=== PATIENT | male | born 1955 | race Caucasian/White ===

== ENCOUNTER → 2016-04-23 | Outpatient (CLI) | payer BC ==
[~2016-04-23] MED LIST: ASPI81TA28 PO; ATEN-173 PO; EMPA1TAB7 PO; FELO5TAB PO; GLIM4TAB2 PO; INSDGI SC; LISI-461 PO; METF-384 PO; PRAV20TA PO
== END | disposition home or self-care (01) ==
LOC: C.PATHSPEC 18:31
PROVIDERS: ATTEND Urology
DX: C67.9 Malignant neoplasm of bladder, unspecified (principal); R82.8 Abnormal findings on cytological and histological examination of urine

== ENCOUNTER 2024-12-07 09:14 | Inpatient (IN) ==
--- NOTE | 2024-12-07 09:49 | Emergency Department Note ---
Impression & Plan Acute dyspnea, Acute CHF, Elevated troponin, Elevated brain natriuretic peptide (BNP) level ED Provider Note HISTORY OF PRESENT ILLNESS: Patient is a 69-year-old male presenting with shortness of breath. Patient reports for the last week he has noticed has become more short of breath with minimal amounts of exertion. Notes that when he bends over to try to tie his shoes or pick something off the ground he is significantly short of breath. He states that last night he was unable to sleep secondary to anytime he laid flat he felt like he could not breathe and would have to sit up. Patient has an extensive cardiac history, including multiple stents and coronary bypass. He is on aspirin and Entresto. Denies any DVT or PE history. Denies noticing any lower extremity edema. He denies any recent cough or fevers. Patient denies any chest pain with her shortness of breath. Denies any recent travel or recent sick contact exposures. ROS: as above PHYSICAL EXAM: Constitutional: Patient appears in no acute distress. HENT: Head: Normocephalic and atraumatic. Eyes: EOMI, PERRL Mouth/Throat: Mucous membranes moist. Neck: Trachea midline. Neck supple. Cardiovascular: RRR, No murmurs, rubs or gallops. Intact distal pulses. Pulmonary/Chest: No respiratory distress. Breath sounds clear and equal bilaterally. No wheezes or rales. Abdominal: Abdomen soft, no tenderness, rebound or guarding. Musculoskeletal: No tenderness or deformity noted. Trace edema of the bilateral lower extremities extending to the mid tibias. Skin: Warm and dry. No rash, erythema, pallor or cyanosis Psychiatric: Appropriate mood and affect for situation. Neurological: Alert and keenly responsive. CN II-XII grossly intact, moving all extremities equally and fully. MDM: - Vitals signs stable. - History obtained via patient. History as above. - Chronic conditions affecting care: DM-2; HTN; HLD; CAD; aortic valve sclerosis; ischemic cardiomyopathy - Differential diagnoses include, but are not limited to: Congestive heart failure; acute coronary syndrome; COPD/asthma exacerbation; pulmonary edema; pulmonary embolism; pneumonia; pneumothorax; viral syndrome - Order placed for continuous cardiac monitoring. At this time, monitor showed rate of 68 bpm with normal sinus rhythm, per my interpretation. - External medical records reviewed. Cardiology report from [place] [facility] dated 01/01/2023 was reviewed. Patient follows in their clinic for his ischemic and valvular cardiomyopathy with an EF of 25%. - EKG image interpreted by myself showed normal sinus rhythm. Rate 68 bpm. QT 446. No acute ischemic changes. Noted have some ST depressions in leads II and V3 through V6. When compared to an EKG from 01/05/2023, these ST depressions have been noted previously. - Laboratory workup interpreted by myself showed normal WBC; stable electrolytes; elevated troponin (60.4); elevated BNP (736); elevated lipase (179) - CXR reviewed interpreted by myself showed pulmonary vascular congestion, per my interpretation. - Patient given 40 mg IV lasix - Patient reports his last echocardiogram had to be canceled this past year and so he has not had an echo in the last 2 years. Will admit for acute CHF and elevated troponin. - Discussion was had with case operator about patient's case and need for admission - Hospitalist consulted for admission - Patient admitted to [facility] for further evaluation and management. ASSESSMENT AND PLAN: Diagnosis: Acute dyspnea; acute CHF; elevated troponin; elevated BNP Plan: admit Past Med/Surg History Problem List (Updated 12/07/24 @ 11:37 by Carol Carmona MD) Ischemic cardiomyopathy Elevated brain natriuretic peptide (BNP) level (Acute) Elevated troponin (Acute) Acute CHF (Acute) Acute dyspnea (Acute) Type 2 diabetes mellitus with retinopathy of both eyes, with long-term current use of insulin Hypertension Albuminuria Bladder carcinoma Erectile dysfunction Vitamin D deficiency T2DM (type 2 diabetes mellitus) IDDM > freestyle isidro Obesity Mild non proliferative diabetic retinopathy HTN (hypertension) Dyslipidemia CAD (coronary artery disease) follows with Dr. Kessler BPH (benign prostatic hyperplasia) Bladder tumor Aortic valve sclerosis follows with Dr. Kessler in [place] [facility] History Arthritis History of neoplasm of bladder History of skin cancer History of CHF (congestive heart failure) Peripheral vascular disease Paroxysmal A-fib History of bleeding ulcers H/O herpes zoster H/O acute myocardial infarction Surgical History History of cystoscopy History of esophagogastroduodenoscopy (EGD) History of colonoscopy History of tooth extraction History of tonsillectomy H/O prosthetic heart valve H/O heart artery stent Status post surgical removal and fulguration of bladder neoplasm History of cataract surgery History of open heart surgery S/P shoulder surgery Family History Father Myocardial infarction, Onset Age: 44 Hypertension Family/Other Diabetes Mother Kidney stones Other No family history of adverse response to anesthesia Denies family history of Ovarian cancer Prostate cancer Breast cancer Colorectal cancer Social History Smoking Status: Former smoker Tobacco Type: Smokeless Tobacco (Dip or Chew) Age Started Using Tobacco: 6; Age Quit Using Tobacco: 62; Second Hand Exposure: No; Do You Dip or Chew Tobacco: No (quit 2017); Hx Alcohol Use: Yes Alcohol type: beer Alcohol Intake Frequency: 2-3 x/Week Alcohol Intake Frequency Comment: 6 beers weekly Hx Substance Use: No Preferred Language: Citizen Of [place] Communication Ability: Effective Visual Impairment: No Limitations Hearing Ability: Normal Wash Tank Tender Required: No Beliefs That Will Affect Care: None marital status: Current Living Situation: Spouse current occupational status: employed current occupation: Excavation How many Children do You have: 1 Feels Safe at Home: Yes Childhood Exposure to Second-Hand Smoke: No Diet: regular caffeine: Yes during the past year weight has: remained stable Dental Care, Regularly: No Physical Activity Frequency: Daily Seatbelt Use: always Sunscreen Use: Yes Assistive Devices: Denture - Upper and Glasses Allergies Allergies Allergy/AdvReac Type Severity Reaction Status Date / Time poison ely extract Allergy Intermediate Rash Verified 11/15/24 08:25 canagliflozin [From Invokana] AdvReac Intermediate rash, Verified 11/15/24 08:25 swelling of lips atorvastatin [From Lipitor] AdvReac Mild muscle Verified 11/15/24 08:25 cramps Home Meds Home Medications Medication Instructions Recorded Confirmed cholecalciferol (vitamin D3) 50 2,000 units PO QAM 04/05/19 11/15/24 mcg (2,000 unit) tablet omega-3 fatty acids 1,250 mg 1,250 mg PO QAM 05/03/19 11/15/24 capsule ascorbate calcium (vitamin C) 500 500 mg PO QAM 04/19/20 11/15/24 mg tablet aspirin 81 mg chewable tablet 81 mg PO QAM 06/24/21 11/15/24 blood sugar diagnostic #10 ea 12/23/21 11/15/24 magnesium hydroxide 400 mg (170 mg 400 mg PO DAILY 04/26/23 11/15/24 magnesium) chewable tablet insulin lispro 100 unit/mL 50 unit subcut UD 10/26/23 11/15/24 subcutaneous pen (Humalog KwikPen (U-100) Insulin) Previous Rx's Medication Instructions Recorded FreeStyle Isidro 2 Sensor (flash #1 ea 05/06/20 glucose sensor) pen needle, diabetic 31 gauge x #500 ea 09/16/2107/28" (BD Ultra-Fine Short Pen Needle) lancets 33 gauge (OneTouch Delica #100 ea 12/23/22 Plus Lancet) dulaglutide 3 mg/0.5 mL 3 mg (0.5 mL) subcut .weekly #6 mL 05/24/23 subcutaneous pen injector flash glucose scanning reader #1 ea 06/25/23 (FreeStyle Isidro 2 [place]) Toujeo Max U-300 SoloStar 300 55 unit (0.1833 mL) subcut BID #18 02/07/24 unit/mL (3 mL) subcutaneous mL insulin pen (insulin glargine U-300 conc) blood sugar diagnostic (OneTouch #100 ea 02/15/24 Verio test strips) sacubitril 49 mg-valsartan 51 mg 1 tab PO BID #180 tabs 06/14/24 tablet (Entresto) metformin 1,000 mg tablet 1,000 mg PO BID #180 tabs 08/15/24 metoprolol succinate 25 mg 25 mg PO QAM #90 tabs 10/24/24 tablet,extended release 24 hr rosuvastatin 20 mg tablet 20 mg .Route .At bedtime #90 tabs 11/14/24 Results & Data (ED) Vital Signs Vital Signs - 24 hr 12/07/24 09:27 12/07/24 09:27 12/07/24 09:47 Temperature 36.4 C L Temperature Source Temporal Artery Scan Pulse Rate 71 Pulse Rate [Apical] 66 Pulse Strength [Apical] Normal Respiratory Rate 20 17 Respiratory Effort / Characteristics Non-Labored Spontaneous Respiratory Depth Normal Respiratory Pattern Regular Blood Pressure 133/82 Blood Pressure [Right Arm] 131/86 Blood Pressure Mean 99 Blood Pressure Mean [Right Arm] 101 Blood Pressure Position Sitting Pulse Oximetry 96 99 Oxygen Delivery Method Room Air Room Air Sepsis Recent Fever Within 48 Hours No Sepsis New/Unexplained Change in Mental Status No Sepsis Action Taken by Nursing No Action Required 12/07/24 09:48 12/07/24 09:49 12/07/24 10:28 Temperature Temperature Source Pulse Rate 67 Pulse Rate [Apical] Pulse Strength [Apical] Respiratory Rate Respiratory Effort / Characteristics SOB on Exertion Respiratory Depth Normal Respiratory Pattern Regular Blood Pressure Blood Pressure [Right Arm] Blood Pressure Mean Blood Pressure Mean [Right Arm] Blood Pressure Position Pulse Oximetry 98 Oxygen Delivery Method Room Air Room Air Sepsis Recent Fever Within 48 Hours Sepsis New/Unexplained Change in Mental Status Sepsis Action Taken by Nursing Laboratory Data 12/07/24 09:48 12/07/24 10:55 Lab Results 12/07/24 12/07/24 Range/Units 09:48 10:55 WBC 9.52 (4.8-10.8) K/ul RBC 4.61 L (4.70-6.10) M/uL Hgb 13.8 L (14.0-18.0) g/dl Hct 42.3 (42.0-52.0) % MCV 91.8 (80.0-100.0) fL MCH 29.9 (25.0-34.0) pg MCHC 32.6 (32.0-36.0) g/dL RDW Std Deviation 46.5 H (36.4-46.3) fL RDW Coeff of Avel 13.9 (11.5-14.5) % Plt Count 179 (130-400) K/uL MPV 11.0 (9.4-12.4) fL Immature Gran % (Auto) 0.4 % Neut % (Auto) 68.1 % Lymph % (Auto) 21.0 % [place] % (Auto) 5.9 % Eos % (Auto) 4.0 % Baso % (Auto) 0.6 % Neut # (Auto) 6.48 (1.40-6.50) K/uL Lymph # (Auto) 2.00 (1.20-3.40) K/uL [place] # (Auto) 0.56 (0.11-0.59) K/uL Eos # (Auto) 0.38 (0.00-0.50) K/uL Baso # (Auto) 0.06 (0.00-0.20) K/uL Immature Gran # (Auto) 0.04 (0.01-0.20) K/uL Sodium TNP 138 Potassium TNP 5.0 Chloride 104 (98-107) mmol/L Carbon Dioxide 28 (21-32) mmol/L Anion Gap TNP BUN 17 (6-23) mg/dl Creatinine 1.09 (0.6-1.4) mg/dl Est Cr Clr Drug Dosing 70.9 ml/min eGFR 72.56 BUN/Creatinine Ratio 15.6 (10-20) Glucose 200 H (70-99(Fasting)) mg/dl Calcium 9.3 (8.6-10.3) mg/dl Magnesium TNP 2.0 Total Bilirubin 1.0 (0.2-1.0) mg/dl AST TNP 24 ALT 35 (7-52) U/L Alkaline Phosphatase 62 (34-104) U/L Troponin I High Sens 60.4 H* (0-20) pg/ml B-Natriuretic Peptide 736 H (0-100) pg/ml Total Protein 7.5 (6.0-8.3) gm/dl Albumin 4.4 (3.4-5.0) gm/dl Globulin 3.1 (2.5-4.0) gm/dl Albumin/Globulin Ratio 1.4 (0.9-2) Lipase 179 H (11-82) U/L Imaging Data Radiologist's Impression: Chest X-Ray 12/07/24 09:46 XR chest 1V portable CLINICAL HISTORY: Chest pain, nonspecific COMPARISON STUDY: 04/18/2021 FINDINGS: Stable CABG. There is increased cardiomegaly with pulmonary vascular congestion. There is increased pulmonary interstitial prominence. No lobar consolidation or pleural effusion. No pneumothorax. IMPRESSION: Increased CHF. ACT 112: Negative or not required by law. Electronically signed by: Juan España M.D. 12/07/2024 10:10 AM Discharge Plan Visit Data Chief Complaint: Shortness of Breath/Dyspnea Stated Complaint: SOB ED Provider: Carol Carmona Discharge Problem: Acute dyspnea, Acute CHF, Elevated troponin, Elevated brain natriuretic peptide (BNP) level Condition: Fair Forms Stand Alone Forms: [facility] Prescriptions Prescriptions: No Action (DME) FreeStyle Isidro 2 Sensor Kit See Rx Instructions .ROUTE .MEDSUPPLY Qty: 1 0RF Rx Instructions: change every 14 days (DME) pen needle, diabetic [BD Ultra-Fine Short Pen Needle] 31 gauge x 5/16" needle See Rx Instructions .ROUTE .MEDSUPPLY Qty: 500 3RF Rx Instructions: Use 5 per day with insulin injections dulaglutide 3 mg/0.5 mL pen injector 3 mg subcut .weekly Qty: 6 3RF (DME) FreeStyle Isidro 2 [place] Misc See Rx Instructions .Route Qty: 1 0RF Rx Instructions: Use to monitor blood sugars daily insulin glargine U-300 conc [Toujeo Max U-300 SoloStar] 300 unit/mL (3 mL) insulin pen 55 unit subcut BID Qty: 18 3RF (DME) OneTouch Verio test strips Strip See Rx Instructions .Route Qty: 100 11RF Rx Instructions: Test blood sugars three times a day Entresto 49-51 mg tablet 1 tab PO BID Qty: 180 1RF metformin 1,000 mg tablet 1,000 mg PO BID Qty: 180 1RF metoprolol succinate 25 mg tablet extended release 24 hr 25 mg PO QAM Qty: 90 1RF rosuvastatin 20 mg tablet 20 mg .ROUTE .At bedtime Qty: 90 0RF Rx Instructions: 20 mg AT BEDTIME; aspirin 81 mg tablet,chewable 81 mg PO QAM omega-3 fatty acids 1,250 mg capsule 1,250 mg PO QAM (DME) blood sugar diagnostic Strip See Rx Instructions .ROUTE .MEDSUPPLY Qty: 10 Rx Instructions: Test blood sugar once daily PRN cholecalciferol (vitamin D3) 2,000 unit tablet 2,000 units PO QAM ascorbate calcium (vitamin C) 500 mg tablet 500 mg PO QAM (DME) lancets [OneTouch Delica Plus Lancet] 33 gauge misc See Rx Instructions .Route Qty: 100 11RF Rx Instructions: Test blood sugars three times a day magnesium hydroxide 400 mg (170 mg magnesium) tablet,chewable 400 mg PO DAILY insulin lispro [Humalog KwikPen Insulin] 100 unit/mL insulin pen 50 unit subcut UD Rx Instructions: 50 units per day/ PER SLIDING SCALE subcut WITH MEALS Referrals Referrals: Barak Nassar CRNP [Primary Care Provider] -
[2024-12-07 10:07] LABS: Hematocrit (blood only) 42.3 % (42.0-52.0); Hemoglobin 13.8 g/dl (14.0-18.0); Immature Granulocytes # (auto) 0.04 K/uL (0.01-0.20); Immature Granulocytes % (auto) 0.4 %; Mean Corpuscular Hemoglobin 29.9 pg (25.0-34.0); Mean Corpuscular Volume 91.8 fL (80.0-100.0); Platelet Count 179 K/uL (130-400); RDW Standard Deviation 46.5 fL (36.4-46.3); Red Blood Count 4.61 M/uL (4.70-6.10); White Blood Count 9.52 K/ul (4.8-10.8)
--- NOTE | 2024-12-07 10:11 | XRay Report ---
XR chest 1V portable CLINICAL HISTORY: Chest pain, nonspecific COMPARISON STUDY: 04/18/2021 FINDINGS: Stable CABG. There is increased cardiomegaly with pulmonary vascular congestion. There is i ncreased pulmonary interstitial prominence. No lobar consolidation or pleural effusion. No pneumothor ax. IMPRESSION: Increased CHF. ACT 112: Negative or not required by law. Electronically signed by: Juan España M.D. 12/07/2024 10:10 AM
[2024-12-07 10:45] LABS: Alanine Aminotransferase 35 U/L (7-52); Albumin Globulin Ratio 1.4 (0.9-2); Albumin Level 4.4 gm/dl (3.4-5.0); Alkaline Phosphatase 62 U/L (34-104); Bilirubin,Total 1.0 mg/dl (0.2-1.0); Blood Urea Nitrogen 17 mg/dl (6-23); Calcium 9.3 mg/dl (8.6-10.3); Carbon Dioxide 28 mmol/L (21-32); Chloride 104 mmol/L (98-107); Creatinine Clr Calc Pharmacy 70.9 ml/min; Globulin 3.1 gm/dl (2.5-4.0); Glucose 200 mg/dl (70-99(Fasting)); Lipase 179 U/L (11-82); Total Protein 7.5 gm/dl (6.0-8.3)
[2024-12-07 11:31] LABS: Magnesium 2.0 mg/dl (1.7-2.4); Potassium 5.0 mmol/L (3.5-5.1); Sodium 138.0 mmol/L (136-145)
[2024-12-07] MEDS: FUROSEMIDE 40 MG/4 ML VIAL IV ONE (11:39)
[2024-12-07] MEDS ORDERED: POLYETHYLENE (MIRALAX) 17 GM PACK PO PRN (14:30)
[2024-12-07] MEDS ORDERED: MAGNESIUM HYDROXIDE SUSP 30 ML UDC PO PRN (14:30)
[2024-12-07] MEDS ORDERED: ALUMINUM/MAGNESIUM SUSP 30 ML UDC PO PRN (14:30)
[2024-12-07] MEDS ORDERED: MELATONIN 3 MG TAB PO PRN (14:30)
[2024-12-07] MEDS ORDERED: ONDANSETRON INJ 2 MG/ML 2 ML VIAL IV PRN (14:30)
[2024-12-07] MEDS ORDERED: ACETAMINOPHEN 325 MG TAB PO PRN (14:30)
--- NOTE | 2024-12-07 16:34 | History & Physical Report ---
Date of Service December 07, 2024 Assessment & Plan (1) Acute CHF: (2) Ischemic cardiomyopathy: (3) Elevated brain natriuretic peptide (BNP) level: (4) Type 2 diabetes mellitus with retinopathy of both eyes, with long-term current use of insulin: (5) Hypertension: Plan Mr Gibbs is a 69yo gentleman with PMH of CAD s/p CABG, ischemic cardiomyopathy, T2DM who presented to the ED today for progressive SOB that started a week ago. He stated the SOB got progressively worse and last night he could not tolerate it anymore. He said he has never experienced this before. Pt noticed that he could not walk the normal distances he usually can, having to stop to catch his breath. He also endorses bendopnea, orthopnea, and PND symptoms. Last known ECHO in 2022 showed EF 50-55%. He denies fever, chills, sick contacts, CP, palpitations, N/V/C/D, abdominal pain, edema, and s ymptoms. He was given a dose of lasix 40mg in the ED, which improved his symptoms. He is currently being managed for CHF exacerbation. CXR: cardiomegaly with pulmonary vascular congestion, CHF Troponins: 60.4, 56.4 BNP: 736 #CHF exacerbation -plans for TTE -continue Lasix 40mg PO daily -repeat CBC, CMP, Troponin, and BNP in morning -encourage low sodium diet #CAD s/p CABG #Ischemic cardiomyopathy -continue rosuvastatin 20mg daily -continue metoprolol 25mg daily -continue Entresto daily 49-50 daily -continue aspirin 81mg daily #Diabetes, Type 2 -goal sugars 110-140 -Correction factor 20 -carb ratio 7 -Glargine 18 units BID -Aspart Dispo: Tele Diet: Heart Healthy, Diabetic, Low sodium Code: Full Code DVT prophylaxis: lovenox Admission and Anticipated Discharge Date Admission Date: December 07, 2024 History of Present Illness Primary Care Provider: DEBBIE Venegas Mr Gibbs is a 69yo gentleman with PMH of CAD s/p CABG, ischemic cardiomyopathy, T2DM who presented to the ED today for progressive SOB that started a week ago. He stated the SOB got progressively worse and last night he could not tolerate it anymore. He said he has never experienced this before. Pt noticed that he could not walk the normal distances he usually can, having to stop to catch his breath. He also endorses bendopnea, orthopnea, and PND symptoms. Last known ECHO in 2022 showed EF 50-55%. He denies fever, chills, sick contacts, CP, palpitations, N/V/C/D, abdominal pain, edema, and symptoms. He was given a dose of lasix 40mg in the ED, which improved his symptoms. Allergies Allergy/AdvReac Type Severity Reaction Status Date / Time poison ely extract Allergy Intermediate Rash Verified 11/15/24 08:25 canagliflozin [From Invokana] AdvReac Intermediate rash, Verified 11/15/24 08:25 swelling of lips atorvastatin [From Lipitor] AdvReac Mild muscle Verified 11/15/24 08:25 cramps Home Medications Medication Instructions Recorded Confirmed Type cholecalciferol (vitamin D3) 50 2,000 units PO QAM 04/05/19 12/07/24 History mcg (2,000 unit) tablet omega-3 fatty acids 1,250 mg 1,250 mg PO QAM 05/03/19 12/07/24 History capsule ascorbate calcium (vitamin C) 500 500 mg PO QAM 04/19/20 12/07/24 History mg tablet FreeStyle Isidro 2 Sensor (flash #1 ea 05/06/20 11/15/24 Rx glucose sensor) aspirin 81 mg chewable tablet 81 mg PO QAM 06/24/21 12/07/24 History pen needle, diabetic 31 gauge x #500 ea 09/16/21 11/15/24 Rx 5/16" (BD Ultra-Fine Short Pen Needle) blood sugar diagnostic #10 ea 12/23/21 11/15/24 History lancets 33 gauge (OneTouch Delica #100 ea 12/23/22 11/15/24 Rx Plus Lancet) magnesium hydroxide 400 mg (170 mg 400 mg PO DAILY 04/26/23 12/07/24 History magnesium) chewable tablet dulaglutide 3 mg/0.5 mL 3 mg (0.5 mL) subcut .weekly #6 mL 05/24/23 12/07/24 Rx subcutaneous pen injector flash glucose scanning reader #1 ea 06/25/23 11/15/24 Rx (FreeStyle Isidro 2 [place]) insulin lispro 100 unit/mL 50 unit subcut UD 10/26/23 12/07/24 History subcutaneous pen (Humalog KwikPen (U-100) Insulin) Anaya Max U-300 SoloStar 300 55 unit (0.1833 mL) subcut BID #18 02/07/24 12/07/24 Rx unit/mL (3 mL) subcutaneous mL insulin pen (insulin glargine U-300 conc) blood sugar diagnostic (OneTouch #100 ea 02/15/24 11/15/24 Rx Verio test strips) sacubitril 49 mg-valsartan 51 mg 1 tab PO BID #180 tabs 06/14/24 12/07/24 Rx tablet (Entresto) metformin 1,000 mg tablet 1,000 mg PO BID #180 tabs 08/15/24 12/07/24 Rx metoprolol succinate 25 mg 25 mg PO QAM #90 tabs 10/24/24 12/07/24 Rx tablet,extended release 24 hr rosuvastatin 20 mg tablet 20 mg PO .At bedtime 12/07/24 12/07/24 History Past Med/Surg History Problem List (Updated 12/07/24 @ 16:43 by Daniel Pritchett MD) Ischemic cardiomyopathy Elevated brain natriuretic peptide (BNP) level (Acute) Elevated troponin (Acute) Acute CHF (Acute) Acute dyspnea (Acute) Type 2 diabetes mellitus with retinopathy of both eyes, with long-term current use of insulin Hypertension Albuminuria Bladder carcinoma Erectile dysfunction Vitamin D deficiency T2DM (type 2 diabetes mellitus) IDDM > freestyle isidro Obesity Mild non proliferative diabetic retinopathy HTN (hypertension) Dyslipidemia CAD (coronary artery disease) follows with Dr. Kessler BPH (benign prostatic hyperplasia) Bladder tumor Aortic valve sclerosis follows with Dr. Kessler in [place] [facility] History Arthritis History of neoplasm of bladder History of skin cancer History of CHF (congestive heart failure) Peripheral vascular disease Paroxysmal A-fib History of bleeding ulcers H/O herpes zoster H/O acute myocardial infarction Surgical History History of cystoscopy History of esophagogastroduodenoscopy (EGD) History of colonoscopy History of tooth extraction History of tonsillectomy H/O prosthetic heart valve H/O heart artery stent Status post surgical removal and fulguration of bladder neoplasm History of cataract surgery History of open heart surgery S/P shoulder surgery Family History Father Myocardial infarction, Onset Age: 44 Hypertension Family/Other Diabetes Mother Kidney stones Other No family history of adverse response to anesthesia Denies family history of Ovarian cancer Prostate cancer Breast cancer Colorectal cancer Social History Smoking Status: Never smoker Tobacco Type: Smokeless Tobacco (Dip or Chew) Age Started Using Tobacco: 6; Age Quit Using Tobacco: 62; Second Hand Exposure: No; Do You Dip or Chew Tobacco: No (quit 2018); Hx Alcohol Use: No Hx Substance Use: No Preferred Language: [place] Communication Ability: Effective Visual Impairment: No Limitations Hearing Ability: Normal Wool Puller Required: No Beliefs That Will Affect Care: None marital status: Current Living Situation: Spouse current occupational status: employed current occupation: Excavation How many Children do You have: 1 Other Information That Helps Us Care for You: No Feels Safe at Home: Yes Safety Concerns: Feels Safe At This Time Childhood Exposure to Second-Hand Smoke: No Diet: regular caffeine: Yes during the past year weight has: remained stable Dental Care, Regularly: No Physical Activity Frequency: Daily Seatbelt Use: always Sunscreen Use: Yes Assistive Devices: Denture - Upper and Glasses Review of Systems Review of Systems: per HPI Physical Exam Physical Exam: GA: well groomed, well nourished in no apparent distress. AAOx3 HEENT: head normocephalic, atraumatic. EOMI RESP: vesicular breath sounds b/l. No wheezes, rhonchi, or rales CARDIOVASCULAR: S1 and S2 heard. No murmurs, rubs, or gallops. Radial pulses 2+ b/l RRR GI: Normoactive bowel sounds, no tenderness or masses felt to palpation MSK: no gross abnormalities or focal deficits SKIN: warm, dry, edema 2+ on right leg, 1+ left leg PSYCH: appropriate mood and affect NEURO: no focal deficits. speech fluent Results & Data Results & Data Vital Signs (Past 12 Hours) Vital Signs Temp Pulse Pulse Resp BP BP Pulse Ox 12/07/24 15:49 69 12/07/24 15:25 12/07/24 15:10 36.7 C 69 14 133/81 98 12/07/24 11:40 66 18 126/81 99 12/07/24 10:28 67 12/07/24 09:49 98 12/07/24 09:48 12/07/24 09:47 66 17 131/86 99 12/07/24 09:27 36.4 C L 12/07/24 09:27 71 20 133/82 96 O2 Del Method 12/07/24 15:49 12/07/24 15:25 Room Air 12/07/24 15:10 Room Air 12/07/24 11:40 Room Air 12/07/24 10:28 12/07/24 09:49 Room Air 12/07/24 09:48 Room Air 12/07/24 09:47 Room Air 12/07/24 09:27 12/07/24 09:27 Room Air Supervising Physician Co-Signing Physician Notes I personally examined the patient and verified all sawant points of history and exam, discussed case, and agree with decision making with Dr Pritchett feeling better now than when he came in. Progressive shortness of breath. Vitals noted, in general he is awake and alert pleasant no distress. HEENT normocephalic atraumatic mucous membranes moist. Breathing unlabored no accessory muscle use good effort. Skin without rashes pallor or icterus. Neuro without focal deficits. Chest x-ray reviewed as well. Acute on chronic HFrEFappears to have severe baseline cardiomyopathy with a low EF of 25% related to ischemic and valvular heart disease (status post two- vessel CABG and AVR in 2018). Suspect dietary indiscretion/sodium intake as the "why now"asked him to write down a typical diet for a couple of days so that we can review it together tomorrow. Continue to diurese. Continue metoprolol and Entresto, consider adding Jardiance at discharge. Diabetesinsulin management for now. Most recent A1c about 3 weeks ago was 8.3%. DVT prophylaxisLovenox (appears to have followed with Dr. Perez with [facility], [facility] facilitate outpatient follow- up at discharge) Resident Activity Tracking Resident Involvement: Resident Care Provided Care Provided: Adult Hospital Medicine (1) Acute CHF Heart failure type: unspecified Qualified Code(s): I50.9 - Heart failure, unspecified (5) Hypertension Hypertension type: unspecified Qualified Code(s): I10 - Essential (primary) hypertension
[2024-12-07] MEDS ORDERED: GLUCAGON FOR INJ 1 MG VIAL SQ PRN (16:53)
[2024-12-07] MEDS ORDERED: CARBOHYDRATES FOR HYPOGLYCEMIA PO PRN (16:53)
[2024-12-07] MEDS ORDERED: DEXTROSE 50% 50 ML SYRINGE IV PRN (16:53)
[2024-12-07] MEDS ORDERED: GLUCOSE 10 TAB/TUBE PO PRN (16:53)
[2024-12-07] MEDS ORDERED: GLUCOSE 40% GEL 15 GM TUBE PO PRN (16:53)
[2024-12-07] MEDS: INSULIN ASPART PER UNIT CHARGE SC STA ×2 (17:13→17:18)
--- NOTE | 2024-12-07 17:53 | Billing Data ---
Date of Service December 07, 2024 Coding Level of Care Code 88819 INT INP/OBS CARE
[2024-12-07] MEDS: LANTUS PER UNIT CHARGE SQ SCH (20:38)
[2024-12-07] MEDS: INSULIN ASPART PER UNIT CHARGE SC SCH (20:38)
[2024-12-07] MEDS: VALSARTAN/SACUBITRIL 51/49 MG TAB PO SCH (20:39)
[2024-12-07] MEDS: ROSUVASTATIN CALCIUM 20 MG TAB PO SCH (20:40)
[2024-12-08 05:59] LABS: Hematocrit (blood only) 41.1 % (42.0-52.0); Hemoglobin 13.3 g/dl (14.0-18.0); Immature Granulocytes # (auto) 0.05 K/uL (0.01-0.20); Immature Granulocytes % (auto) 0.5 %; Mean Corpuscular Hemoglobin 29.8 pg (25.0-34.0); Mean Corpuscular Volume 92.2 fL (80.0-100.0); Platelet Count 183 K/uL (130-400); RDW Standard Deviation 46.5 fL (36.4-46.3); Red Blood Count 4.46 M/uL (4.70-6.10); White Blood Count 9.20 K/ul (4.8-10.8)
[2024-12-08 06:19] LABS: Anion Gap 5.0 (3-11); Blood Urea Nitrogen 23.0 mg/dl (6-23); Calcium 8.6 mg/dl (8.6-10.3); Carbon Dioxide 29.0 mmol/L (21-32); Chloride 104.0 mmol/L (98-107); Creatinine Clr Calc Pharmacy 61.3 ml/min; Potassium 4.6 mmol/L (3.5-5.1); Sodium 138.0 mmol/L (136-145)
[2024-12-08] MEDS: ASPIRIN 81 MG CHEW PO SCH (08:38)
[2024-12-08] MEDS: FUROSEMIDE 40 MG/4 ML VIAL IV SCH (08:38)
[2024-12-08] MEDS: METOPROLOL SUCC 25MG EXT REL TAB PO SCH (08:39)
[2024-12-08] MEDS: ENOXAPARIN INJ 40 MG/0.4 ML SYR SQ SCH (08:40)
[2024-12-08 10:39] VITALS: BP 114/77; RESP 19; TEMP 97.5; O2SAT 95
--- NOTE | 2024-12-08 12:06 | Discharge Summary ---
Date of Service December 08, 2024 Admission HPI Per Admitting Provider Mr Gibbs is a 69yo gentleman with PMH of CAD s/p CABG, ischemic cardiomyopathy, T2DM who presented to the ED today for progressive SOB that started a week ago. He stated the SOB got progressively worse and last night he could not tolerate it anymore. He said he has never experienced this before. Pt noticed that he could not walk the normal distances he usually can, having to stop to catch his breath. He also endorses bendopnea, orthopnea, and PND symptoms. Last known ECHO in 2022 showed EF 50-55%. He denies fever, chills, sick contacts, CP, palpitations, N/V/C/D, abdominal pain, edema, and symptoms. He was given a dose of lasix 40mg in the ED, which improved his symptoms. Admission Exam Per Admitting Provider GA: well groomed, well nourished in no apparent distress. AAOx3 HEENT: head normocephalic, atraumatic. EOMI RESP: vesicular breath sounds b/l. No wheezes, rhonchi, or rales CARDIOVASCULAR: S1 and S2 heard. No murmurs, rubs, or gallops. Radial pulses 2+ b/l RRR GI: Normoactive bowel sounds, no tenderness or masses felt to palpation MSK: no gross abnormalities or focal deficits SKIN: warm, dry, edema 2+ on right leg, 1+ left leg PSYCH: appropriate mood and affect NEURO: no focal deficits. speech fluent Principal Diagnosis Acute CHF. Discharge Data Allergies Allergy/AdvReac Type Severity Reaction Status Date / Time poison ely extract Allergy Intermediate Rash Verified 11/15/24 08:25 canagliflozin [From Invokana] AdvReac Intermediate rash, Verified 11/15/24 08:25 swelling of lips atorvastatin [From Lipitor] AdvReac Mild muscle Verified 11/15/24 08:25 cramps Consultations 12/07/24 11:35 ED Decision to Admit Stat Hospital Course (1) Acute CHF: (2) Ischemic cardiomyopathy: (3) Elevated brain natriuretic peptide (BNP) level: (4) Type 2 diabetes mellitus with retinopathy of both eyes, with long-term current use of insulin: (5) Hypertension: Plan Mr Gibbs is a 69yo gentleman with PMH of CAD s/p CABG, ischemic cardiomyopathy, T2DM who presented to the ED for progressive SOB that started a week ago. He stated the SOB got progressively worse and last night he could not tolerate it anymore. He said he has never experienced this before. Pt noticed that he could not walk the normal distances he usually can, having to stop to catch his breath. He also endorses bendopnea, orthopnea, and PND symptoms. Last known ECHO in 2022 showed EF 50-55%. He denies fever, chills, sick contacts, CP, palpitations, N/V/C/D, abdominal pain, edema, and symptoms. He was given a dose of lasix 40mg in the ED, which improved his symptoms. CXR: cardiomegaly with pulmonary vascular congestion, CHF Troponins: 60.4, 56.4 BNP: 736 #CHF exacerbation -plans for TTE; done result pending. Follow Outpatient. -continue Lasix 40mg PO daily -Jardiance added 10 mg QAM. -encourage low sodium diet - BMP in 1week #CAD s/p CABG #Ischemic cardiomyopathy -continue rosuvastatin 20mg daily -continue metoprolol 25mg daily -continue Entresto daily 49-50 daily -continue aspirin 81mg daily #Diabetes, Type 2 - Home med contd - Jardiance added. - A1C:8.2 Total Time Total Time Spent Total Time Spent (In Minutes): <30 Discharge Plan Discharge Items Patient Disposition: Home - Self-Care Reason For Visit: DYSPNEA Discharge Diagnosis: Acute exacerbation of heart failure. Condition on Discharge: Fair Activity: Resume your previous activity Non-emergency contact: Primary Care Provider and Lining Finisher Call non-emergency contact if: your symptoms worsen Follow-up/Referrals: Barak Nassar CRNP [Primary Care Provider] - 12/14/24 10:20 am Destini Frazier MD [Resident] - Diet: Heart Healthy Addtl Attending Provider Instructions: You were admitted to the hospital for acutely worsened shortness of breath. You were treated with Lasix injection which helps drawing water from your body and unload your heart from excessive fluids. Your symptoms got better and we observed you through night under monitor which was reassuring. This presentation is mild form of acute exacerbation of heart failure,however given your past hi story and echo finding, your heart function is already pretty compromised. Hence to prevent this from happening again, I would recommend minimize salt intake as far as possible, take regular medications as prescribed. Echo was done this morning, awaiting reporting. Your A1C for diabetes is poorly controlled, We have added new medication on top of your insulin. Please f.u with PCP for longitudinal care. A discharge summary will be sent to your primary care physician to ensure continuity of care. Please bring this discharge summary with you to your next office appointment so that your provider can review it at that time. Medications: Your medication list has been reviewed and reconciled upon discharge to ensure accuracy and continuity of care. An updated list of all your medications is included with your hospital discharge paperwork. Please review this list closely and make note of any changes to your medications. 1. Lasix 40 mg once daily continue. 2. Jardiance 10 mg once daily Follow up appointments: - Make a follow up appointment with your PCP within the next week. It is very important that you follow up with them shortly after discharge from the hospital. - Appointment with Destini Frazier MD at [facility] family medicine office for f.u care - Keep all of your follow up appointments as already scheduled. If you cannot make an appointment, notify your provider. CONTACT YOUR PRIMARY CARE PROVIDER if you experience any of the following: - Difficulty following your treatment plan - Difficulty taking any of your medications CALL 911 OR GO TO THE EMERGENCY DEPARTMENT if you experience any of the following: - Sudden, severe abdominal pain or nausea/vomiting - Severe chest pain or chest pain that radiates to your jaw or arm - Sudden, severe shortness of breath or difficulty breathing Pending Studies at Discharge: No Stand-Alone Forms: My [facility], Smoking Cessation Medications and DC Order Prescriptions: New furosemide [Lasix] 40 mg tablet 40 mg PO QAM 30 Days Qty: 30 0RF Jardiance 10 mg tablet 10 mg PO QAM Qty: 30 0RF Continued (DME) FreeStyle Isidro 2 Sensor Kit See Rx Instructions .ROUTE .MEDSUPPLY Qty: 1 0RF Rx Instructions: change every 14 days (DME) pen needle, diabetic [BD Ultra-Fine Short Pen Needle] 31 gauge x 5/16" needle See Rx Instructions .ROUTE .MEDSUPPLY Qty: 500 3RF Rx Instructions: Use 5 per day with insulin injections dulaglutide 3 mg/0.5 mL pen injector 3 mg subcut .weekly Qty: 6 3RF (DME) FreeStyle Isidro 2 Delmar Misc See Rx Instructions .Route Qty: 1 0RF Rx Instructions: Use to monitor blood sugars daily insulin glargine U-300 conc [Toujeo Max U-300 SoloStar] 300 unit/mL (3 mL) ins ulin pen 55 unit subcut BID Qty: 18 3RF (DME) OneTouch Verio test strips Strip See Rx Instructions .Route Qty: 100 11RF Rx Instructions: Test blood sugars three times a day Entresto 49-51 mg tablet 1 tab PO BID Qty: 180 1RF metformin 1,000 mg tablet 1,000 mg PO BID Qty: 180 1RF metoprolol succinate 25 mg tablet extended release 24 hr 25 mg PO QAM Qty: 90 1RF aspirin 81 mg tablet,chewable 81 mg PO QAM omega-3 fatty acids 1,250 mg capsule 1,250 mg PO QAM (DME) blood sugar diagnostic Strip See Rx Instructions .ROUTE .MEDSUPPLY Qty: 10 Rx Instructions: Test blood sugar once daily PRN cholecalciferol (vitamin D3) 2,000 unit tablet 2,000 units PO QAM ascorbate calcium (vitamin C) 500 mg tablet 500 mg PO QAM (DME) lancets [OneTouch Delica Plus Lancet] 33 gauge misc See Rx Instructions .Route Qty: 100 11RF Rx Instructions: Test blood sugars three times a day magnesium hydroxide 400 mg (170 mg magnesium) tablet,chewable 400 mg PO DAILY insulin lispro [Humalog KwikPen Insulin] 100 unit/mL insulin pen 50 unit subcut UD Rx Instructions: 50 units per day/ PER SLIDING SCALE subcut WITH MEALS rosuvastatin 20 mg tablet 20 mg PO .At bedtime Rx Instructions: 20 mg AT BEDTIME; Discharge Orders: Discharge Order- CHF (Routine); Ordered 12/08/24 Ordered By: Destini Frazier Admission Data Admit Date/Time: 12/07/24 12:28 Attending Provider: John Arreola Admit Provider: Daniel Pritchett Primary Care Provider: Barak Nassar Other Providers: John Arreola Other Interventions: Discharge Summary Assessment (RN) Last Done: 12/08/24 16:02 Supervising Physician Co-Signing Physician Notes I personally examined the patient and verified all sawant points of history and exam, discussed case, and agree with decision making with Dr Frazier Feeling good overall. Walking the halls briskly without any dyspnea on room air. presentupdated both. Echo still pending, and in discussions, he is comfortable going home with echo pending and outpatient follow-up (as MA) Vitals noted, in general he is awake and alert pleasant no distress. HEENT normocephalic atraumatic mucous membranes moist. Breathing unlabored no accessory muscle use good effort. Skin without rashes pallor or icterus. Neuro without focal deficits. . Acute on chronic HFrEFappears to have severe baseline cardiomyopathy with a low EF of 25% related to ischemic and valvular heart disease (status post two- vessel CABG and AVR in 2018). Suspect dietary indiscretion/sodium intake as the "why now" this is corroborated by the fact that he apparently frequently eats [place] food. We discussed salt loading leading to fluid retention, and we discussed essentially, "the Starling curve in layman's terms"explaining how that can also make his overall situation more brittle. Less than 2000 mg of sodium a day, less than 500 mg of sodium at each meal outlined. Patient and expressed good understanding. Safe/stable for home. Lasix for now, hopefully in close outpatient follow-up this could be minimized to as needed. Jardiance to be started as well. Outpatient follow-up this coming week, basic metabolic panel at outpatient follow-up. Diabetes Home on home medications, Jardiance will likely get his A1c into the mid to low sevens. Most recent A1c about 3 weeks ago was 8.3%. DVT prophylaxisLovenox Resident Activity Tracking Resident Involvement: Resident Care Provided Care Provided: Adult Hospital Medicine
--- NOTE | 2024-12-08 16:03 | Communication Note ---
Date of Service: December 08, 2024 By CMS guidelines, a determination that the admission or continued stay is not medically necessary has been made by a member of the UR committee and jorge earl for this hospital stay, therefore a Code 44 will be completed and the Inpatient admission will be changed to outpatient.
[2024-12-08 16:05] VITALS: PULSE 69
--- NOTE | 2024-12-08 16:50 | Billing Data ---
Date of Service December 08, 2024 Coding Level of Care Code 83113 IN/OBS DISCH 30 MIN/LESS
--- NOTE | 2024-12-08 20:21 | XCELERA ---
[id number]
--- NOTE | 2024-12-10 20:51 | Electrocardiogram Report ---
Test Reason : Blood Pressure : */* mmHG Vent. Rate : 68 BPM Atrial Rate : 68 BPM P-R Int : 242 ms QRS Dur : 120 ms QT Int : 446 ms P-R-T Axes : * 44 159 degrees QTcB Int : 474 ms Sinus rhythm with 1st degree A-V block Non-specific intra-ventricular conduction delay Abnormal ECG When compared with ECG of 18-Apr-2021 11:30, [place] interval has increased Questionable change in QRS duration Confirmed by Kvng Saunders ([id number]) on 12/10/2024 8:51:17 PM Referred By: REFERRED SELF Confirmed By: Kvng Saunders
== END 2024-12-08 16:41 | disposition home or self-care (01) | DRG 293 ==
LOC: ED 09:14 → EDINP 12:28 → 2E 15:03